=== PATIENT | male | born 1930 | race Caucasian/White ===

== ENCOUNTER 2016-09-15 09:29 | Emergency (ER) | payer MEDICARE, BC ==
--- NOTE | ~2016-09-15 | ER ---
PATIENT'S NAME: [facility] AGE: 86 Y [address] ROOM: [place] [address] LOCATION: [facility] ADMIT DATE: 09/15/2016 ER/Outpatient Report DISCHARGE DATE: 09/15/2016 FAMILY PHYSICIAN: Gisel Mccormick MD ATTENDING PHYSICIAN: Chito Hensley Admission date and time documented in medical record. I saw the patient at 0940 hours. CHIEF COMPLAINT: Left nasal bleed. HISTORY OF PRESENT ILLNESS: The patient is an 86-year-old male, who developed a left nasal bleed this morning. It kind of just continues to drip. He has little bit of blood drainage in the back of his throat. He had his left nares cauterized 2 weeks ago by ENT, Dr. Alvarado. No other complaints. He does take Xarelto for chronic anticoagulation. No fall or trauma. No headache, eyes, ears, throat, neck, or spine pain. No chest pain or shortness of breath. No abdominal pain, nausea, vomiting, diarrhea, or urinary complaints. No joint or muscle swelling, redness, or pain. No skin eruptions or rash. No neuro changes, psych issues, or endocrine problems. HOME MEDICATIONS: See attached medication list. ALLERGIES: NONE. SOCIAL HISTORY: Nonsmoker, nondrinker. SIGNIFICANT PAST MEDICAL HISTORY: Atrial fibrillation, chronic anticoagulation. PAST SURGICAL HISTORY: Prostatectomy. REVIEW OF SYSTEMS: All systems reviewed by me are negative with the exception of those discussed in the history of the present illness. PHYSICAL EXAMINATION: VITAL SIGNS: Temperature 96.7, pulse 93, respirations 16, blood pressure 127/75, O2 saturation on room air is 99%. On examination, the patient has a PATIENT'S NAME: [facility] AGE: 86 Y [address] ROOM: [place] [address] LOCATION: [facility] ADMIT DATE: 09/15/2016 ER/Outpatient Report DISCHARGE DATE: 09/15/2016 FAMILY PHYSICIAN: Gisel Mccormick MD ATTENDING PHYSICIAN: Chito Hensley large clot in the left naris that we had the patient blow out. He also had some clots in the posterior pharynx that he was able to get rid of. Following the removal of the clots in his left nasal passage, he had no further bleeding posteriorly or anteriorly. On inspection with the nasal speculum and light, he did have what looked like to be a vessel that most likely was the source of his bleeding. It was not actively bleeding; however, I did cauterize it with silver nitrate. I watched him for 0.5 hour here in the emergency department. He had no further nosebleed. IMPRESSION: Left nasal bleed. PLAN: The patient dismissed home. Observation. Activity as tolerated. Continue present home medications and care. Avoid picking or blowing his nose for 3 to 4 days. Good fluid intake. Good hydration. Balanced diet. Return to see personal physician as needed. Discussion ensued with the patient and his family regarding my findings and recommendations; they understand. MD JONELLE HOPSON/jayne /[id number] d: 09/15/16 1532 t: 09/16/16 0616, OUTPATIENT REPORT
[~2016-09-15 09:29] MED LIST: CORDARONE,PACE200 MG PO; LOPRESSOR25 MG PO; XARELTO20 MG PO
== END 2016-09-15 10:41 | disposition disaster alternative care site (69) ==
LOC: GMED 09:29
PROC: 0W3Q7ZZ Control Bleeding in Respiratory Tract, Via Natural or Artificial Opening (ICD-10-PCS; principal; 2016-09-15)
DX: R04.0 Epistaxis (principal); I48.91 Unspecified atrial fibrillation

== ENCOUNTER → 2016-09-16 | Outpatient (CLI) | payer MEDICARE, BC ==
[2016-09-16 10:31] LABS: INR - (THERAPEUTIC) 1.4 (0.9-1.1); PROTIME 15.1 SECONDS (9.6-11.1)
== END | disposition disaster alternative care site (69) ==
LOC: LGSMG 10:13
PROVIDERS: Internal Medicine
DX: R04.0 Epistaxis (principal)